=== PATIENT | male | born 1980 | race Caucasian/White ===

== ENCOUNTER 2017-02-11 06:11 | Inpatient (IN) | payer OTHER ==
--- NOTE | 2017-02-11 06:18 | EDPHY ---
H & P Stated Complaint: R FLANK PAIN THIS A.M. HPI/ROS: HPI CHIEF COMPLAINT: Right-sided back pain HISTORY OF PRESENT ILLNESS: This patient 36-year-old male otherwise healthy, does not take any daily medications, presents emergency room with right-sided posterior back pain worse when he takes a deep breath in or worse when he goes to sit up and worse with musculoskeletal movement. Patient denies any trauma. Patient tells me that he did help clean a friend's house yesterday but does not remember injuring his back or doing any significant exertional activity. States he woke up around 430 this morning with right-sided back pain is paravertebral on the right side next to his scapula. It is worse when he takes deep breath and is also worse when he goes to push himself to sit up. States feels like musculoskeletal pain. Also tells me it is sharp stabbing when he takes deep breath in. Denies fever. He does tell me he has had a cough recently. Nonproductive. Denies left-sided chest pain or arm pain, numbness or tingling. Focal weakness. Denies fever. Past Medical History: Genital herpes Past Surgical History: No recent surgery Social History: Denies daily use of drugs alcohol tobacco products Family History: Noncontributory ROS REVIEW OF SYSTEMS: A comprehensive 10 point review of systems is otherwise negative aside from elements mentioned in the history of present illness. Exam Constitutional triage nursing summary reviewed, vital signs reviewed, awake/ alert. Eyes normal conjunctivae and sclera, EOMI, PERRLA. HENT normal inspection, atraumatic, moist mucus membranes, no epistaxis, neck supple/ no meningismus, no raccoon eyes. Respiratory clear to auscultation bilaterally, normal breath sounds, no respiratory distress, no wheezing. Cardiovascular rate normal, regular rhythm, no murmur, no edema, distal pulses normal. Gastrointestinal soft, non-tender, no rebound, no guarding, normal bowel sounds, no distension, no pulsatile mass. Genitourinary no CVA tenderness. Musculoskeletal no midline vertebral tenderness, full range of motion, no calf swelling, no tenderness of extremities, no meningismus, good pulses, neurovascularly intact. Skin pink, warm, & dry, no rash, skin atraumatic. Neurologic awake, alert and oriented x 3, AAOx3, moves all 4 extremities equally, motor intact, sensory intact, CN II-XII intact, normal cerebellar, normal vision, normal speech. Psychiatric normal mood/affect. Heme/Lymph/Immune no lymphadenopathy. 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 Re-evaluation: This appears to be pleuritic in nature also has a musculoskeletal component. Will rule him out for pulmonary embolism. Toradol to see if this improves his pain. EKG interpretation by me on record in [employer] system. Impression time of EKG 6:34 a.m., this is sinus rhythm rate of 71. No acute ischemia. [id number]: I did review this patient's chest x-ray two view it does show he has a moderate size pneumothorax. There is no tension physiology on x-ray. Patient be placed on oxygen. I will consult surgery for this moderate size pneumothorax. 0706: Trauma surgery is been consult for this pneumothorax. Dr. Morales has relayed this to Dr. Beltran, this patient has a moderate size pneumothorax. Plan will be for Dr. Reese and evaluate most likely chest tube admission. Dr. Hanson aware of this patient at 7am shift change. Plan for admission, Chest tube. Source: Patient - Personal History Current Tetanus/Diphtheria Vaccine: Yes Current Tetanus Diphtheria and Acellular Pertussis (TDAP): Yes - Medical/Surgical History Hx Asthma: No Hx Chronic Respiratory Disease: No Hx Diabetes: No Hx Cardiac Disease: No Hx Renal Disease: No Hx Cirrhosis: No Hx Alcoholism: No Hx HIV/AIDS: No Hx Splenectomy or Spleen Trauma: No Other PMH: HSV - Social History Smoking Status: Former smoker Constitutional: Initial Vital Signs Temperature (C) 36.7 C 02/11/17 06:13 Heart Rate 75 02/11/17 06:13 Respiratory Rate 18 02/11/17 06:13 Blood Pressure 112/77 02/11/17 06:13 O2 Sat (%) 97 02/11/17 06:13 O2 Delivery Mode Nasal Cannula O2 (L/minute) 2 Allergies/Adverse Reactions: No Known Allergies Allergy (Verified 02/11/17 06:15) Home Medications: Medication Instructions Recorded Ibuprofen [Motrin (*)] 800 mg PO Q6-8PRN #10 tab 02/11/17 Multivitamins [Multivitamin (*)] 1 each PO DAILY 02/11/17 Medical Decision Making - Data Points Laboratory Results: Laboratory Results 02/11/17 06:43 02/11/17 06:43 Medications Given: Discontinued Medications Fentanyl (Sublimaze) 50 mcg IVP EDNOW ONE Stop: 02/11/17 07:16 Last Admin: 02/11/17 07:34 Dose: 50 mcg Sodium Chloride (Ns) 500 mls @ 1,000 mls/hr IV ONCE ONE PRN Reason: Protocol Stop: 02/11/17 06:54 Last Admin: 02/11/17 06:52 Dose: 500 mls Ketorolac Tromethamine (Toradol) 30 mg IVP EDNOW ONE Stop: 02/11/17 06:29 Last Admin: 02/11/17 06:57 Dose: 30 mg Lorazepam (Ativan Injection) 0.5 mg IVP EDNOW ONE Stop: 02/11/17 07:16 Last Admin: 02/11/17 07:34 Dose: 0.5 mg Midazolam HCl (Versed) 2 mg IVP ONCE ONE Stop: 02/11/17 08:28 Last Admin: 02/11/17 08:28 Dose: 2 mg Midazolam HCl (Versed) 2 mg IVP ONCE ONE Stop: 02/11/17 08:39 Last Admin: 02/11/17 08:36 Dose: 2 mg Departure - Departure Disposition: [facility] Inpatient Acute Clinical Impression: Pneumothorax Qualifiers: Pneumothorax type: unspecified pneumothorax Qualified Code(s): J93.9 - Pneumothorax, unspecified Condition: Good
[2017-02-11] MEDS ORDERED: NS 500 ML IV ONE (06:25)
[2017-02-11] MEDS ORDERED: KETOROLAC 30 MG/1 ML SDV IVP ONE (06:28)
--- NOTE | 2017-02-11 06:36 | CPEKG ---
Heart Rate: 71 RR Interval: 845 P-R Interval: 148 QRSD Interval: 108 QT Interval: 372 QTC Interval: 405 P [place]: 53 QRS [place]: 67 T Wave [place]: 42 EKG Severity - NORMAL ECG - EKG Impression: SINUS RHYTHM Electronically Signed By: Catalina Hanson 11-Feb-2017 16:08:23
[2017-02-11 06:54] LABS: % IMMATURE GRANULYOCYTES 0.3 % (0.0-1.1); ABSOLUTE IMMATURE GRANULOCYTES 0.03 10^3/uL (0.00-0.10); ADD DIFF? NO; ADD MORPH? NO; ADD SCAN? NO; ATYPICAL LYMPHOCYTE FLAG 10 (0-99); FRAGMENT RBC FLAG 0 (0-99); HEMATOCRIT 45.8 % (40.0-51.0); HEMOGLOBIN 15.9 g/dL (13.7-17.5); LEFT SHIFT FLG 0 (0-99); LIPEMIA HEMOLYSIS FLAG 90 (0-99); MEAN CELL HEMOGLOBIN 29.7 pg (27.9-34.1); MEAN CELL HEMOGLOBIN CONCENTR. 34.7 g/dL (32.4-36.7); MEAN CELL VOLUME 85.6 fL (81.5-99.8); MEAN PLATELET VOLUME 11.7 fL (8.7-11.7); PLATELET CLUMPS FLAG 10 (0-99); PLATELET COUNT 201 10^3/uL (150-400); RED BLOOD CELL COUNT 5.35 10^6/uL (4.40-6.38); RED CELL DISTRIBUTION WIDTH 11.9 % (11.5-15.2)
[2017-02-11 07:05] LABS: ALANINE AMINOTRANSFERASE 86 IU/L (21-72); ALBUMIN 4.5 g/dL (3.5-5.0); ALKALINE PHOSPHATASE 55 IU/L (38-126); ANION GAP 13 mEq/L (8-16); ASPARTATE AMINOTRANSFERASE 37 IU/L (17-59); BILIRUBIN,TOTAL 0.6 mg/dL (0.1-1.4); BILIRUBIN-CONJUGATED 0.4 mg/dL (0.0-0.5); BILIRUBIN-UNCONJUGATED 0.2 mg/dL (0.0-1.1); CALCIUM 9.1 mg/dL (8.5-10.4); CARBON DIOXIDE 19 mEq/l (22-31); CHLORIDE 108 mEq/L (97-110); CREATININE 0.7 mg/dL (0.7-1.3); GLOMERULAR FILTRATION RATE > 60; GLUCOSE 102 mg/dL (70-100); MAGNESIUM 2.1 mg/dL (1.6-2.3); POTASSIUM 4.1 mEq/L (3.5-5.2); SODIUM 140 mEq/L (134-144); TOTAL PROTEIN 7.5 g/dL (6.3-8.2)
[2017-02-11] MEDS ORDERED: LORazepam 2 MG/ML INJ IVP ONE (07:15)
[2017-02-11] MEDS ORDERED: fentaNYL 100 MCG/2 ML INJ IVP ONE (07:15)
[2017-02-11 07:17] LABS: CREATINE KINASE-MB FRACTION 2.24 ng/mL (0-3.19); TROPONIN I < 0.012 ng/mL (0-0.034)
[2017-02-11] MEDS ORDERED: MIDAZOLAM 2 MG/2 ML VIAL ONE ×2 (08:16→08:35)
[2017-02-11] MEDS ORDERED: MIDAZOLAM 2 MG/2 ML VIAL IVP ONE ×2 (08:27→08:38)
--- NOTE | 2017-02-11 08:52 | PDGENHP ---
History & Physical Chief Complaint: Shortness of breath History of Present Illness: This is a 36-year-old gentleman who is been going on for the [employer] of the last several days and has had increasing dyspnea and right pleuritic chest pain. He came in by over this morning after symptoms became intolerable. No previous symptoms. No significant past medical history. Maternal family with history of cardiac disease. Review of systems significant for pleuritic chest pain on the right otherwise all reviewed and were negative. No known drug allergies. Occasional acyclovir use Pertinent Past, Social, Family History: Mother's family with diabetes, cardiac disease. Mother with breast cancer. Patient smokes marijuana remote history of smoking tobacco. Quit alcohol 1 year ago. No surgical history. Lives alone. Relevant Physical Exam: Alert oriented no distress. Lungs clear bilaterally. Heart regular heart tones. Abdomen is soft nontender nondistended, no hepatosplenomegaly. No hernias. Extremities good range of motion muscle strength equal bilaterally 5+. Skin normal turgor and tone. Very anxious affect otherwise normal Cardiorespiratory Assessment: Chest x-ray demonstrates 20-30% pneumothorax on the right. Spontaneous pneumothorax. Recommend chest tube placement with 24 hours of suction. Repeat chest x-ray after placement of the tube and in 24 hours. The risks benefits and alternatives to the procedure have been outlined clearly with the patient. Verbal confirmation of understanding was obtained prior to written consent.
--- NOTE | 2017-02-11 08:55 | POSTOPPROG ---
Post Op Note Date of Operation: 02/11/17 Surgeon: Sathish Pereira Bridge Carpenter: None Anesthesiologist: None Anesthesia: IV Sedation Pre-op Diagnosis: Spontaneous right pneumothorax Post-op Diagnosis: Same Procedure: Closed tube thoracostomy placement Findings: Good air shrestha postprocedure Chest x-ray-lung re-expanded Inf/Abcess present in the surg proc area at time of surgery?: No EBL: Minimal Drains: Nephrostomy, Other (Right 24 Citizen [place] chest tube) Specimen(s): None
[2017-02-11] MEDS ORDERED: ONDANSETRON DISINTEGRATING 4 MG TAB PO PRN (08:59)
--- NOTE | 2017-02-11 08:59 | SUROPNOTE ---
[facility] Operative Report - Surgery Date of procedure 02/11/2017 Indications for procedure Spontaneous right pneumothorax with pleuritic chest pain Preop diagnosis: Right pneumothorax spontaneous Postop diagnosis: Same Procedure right closed tube thoracotomy Surgeon: Sathish Pereira Anesthesia 4 mg of Versed said M 1% xylocaine with epinephrine Findings good air shrestha during procedure post x-ray shows complete re-expansion of the lung Procedure: This is a 36-year-old gentleman who presents to the hospital with spontaneous pneumothorax. Right-sided pneumothorax is confirmed on x-ray time-out procedure was performed according to institutional standards. After infusion of IV sedation his chest is prepped with chlorhexidine draped sterilely. Local anesthetic is infused incident and subcutaneous tissues of the right chest at the 5th intercostal space. A 10 blade used to make the incision was deepened sharply blunt dissection is then used to get to the rib cage. The pleural space is entered after appropriate anesthesia placement. The air shrestha was noted and a 24 [place] chest tube was placed through this defect. It was secured at 12 cm. The patient tolerated the procedure well. Sterile application of dressing was performed after connecting the chest tube to an atrium.
[2017-02-11] MEDS: oxyCODONE IR 5 MG TAB PO PRN ×2 (09:35→19:26)
[2017-02-11] MEDS: LIDOCAINE 5% 1 EA PATCH TD SCH (09:37)
[2017-02-11] MEDS: LORazepam 1 MG TAB PO PRN ×2 (12:30→23:09)
[2017-02-11 19:20] LABS: COLOR YELLOW; LEUKOCYTE ESTERASE,URINE NEGATIVE (NEGATIVE); NITRITE,URINE NEGATIVE (NEGATIVE)
[2017-02-11] MEDS ORDERED: PATCH REMOVAL 1 EA PATCH TD SCH (21:00)
[2017-02-11 23:01] VITALS: RESP 16
[2017-02-11] MEDS: KETOROLAC 30 MG/1 ML SDV IVP PRN (23:09)
[2017-02-11] MEDS ORDERED: TEMAZEPAM 15 MG CAP PO PRN (23:59)
[2017-02-12] MEDS: LIDOCAINE 5% 1 EA PATCH TD SCH (08:34)
[2017-02-12] MEDS: KETOROLAC 30 MG/1 ML SDV IVP PRN (09:59)
[2017-02-12 11:29] VITALS: TEMP 98.2
[2017-02-12 15:43] VITALS: BP 140/83; PULSE 76; O2SAT 98
--- NOTE | 2017-02-12 16:26 | SOAPPROG ---
SOAP Progress Note Assessment/Plan: Assessment/Plan Spontaneous ptx treated with closed tube thoracostomy. CXR no ptx while on water seal CT pulled without incident D/C today if no ptx on post pull film 02/12/17 16:25 Objective: Vital Signs Temp Pulse Resp BP Pulse Ox 36.8 C 76 16 140/83 H 98 02/12/17 15:42 02/12/17 15:42 02/12/17 15:42 02/12/17 15:42 02/12/17 15:42 02/11/17 02/12/17 02/13/17 05:59 05:59 05:59 Intake Total 450 Balance 450 ICD10 Worksheet Patient Problems: Problems Problem Status Onset Pneumothorax Acute
== END 2017-02-12 19:28 | disposition home or self-care (01) | DRG 201 ==
LOC: OBSVTOIN 07:47 → F3E 09:18
PROVIDERS: ADMIT Surgery; ATTEND Surgery
PROC: 0W9930Z Drainage of Right Pleural Cavity with Drainage Device, Percutaneous Approach (ICD-10-PCS; principal; 2017-02-11)
DX: J93.83 Other pneumothorax (principal); Z87.891 Personal history of nicotine dependence
CPT/HCPCS: 96374; J1885; J2060; J2250; J3010

== ENCOUNTER 2017-02-25 22:30 | Emergency (ER) | payer OTHER ==
--- NOTE | 2017-02-25 22:39 | EDPHY ---
H & P - Medical/Surgical History Hx Asthma: No Hx Chronic Respiratory Disease: No Hx Diabetes: No Hx Cardiac Disease: No Hx Renal Disease: No Hx Cirrhosis: No Hx Alcoholism: No Hx HIV/AIDS: No Hx Splenectomy or Spleen Trauma: No Other PMH: HSV - Social History Smoking Status: Former smoker Time Seen by Provider: 02/25/17 22:38 HPI/ROS: CHIEF COMPLAINT: Dyspnea, history of recent pneumothorax HISTORY OF PRESENT ILLNESS: 36-year-old male with recent ER evaluation for spontaneous right-sided pneumothorax with chest tube placement by General surgery at that time, presents to the ER via private vehicle complaining of 3- 4 hours of acute right sided chest pain, back pain, dyspnea, anxiety. No abdominal pain. No syncope or near syncope. REVIEW OF SYSTEMS: A ten point review of systems was performed and is negative with the exception of the items mentioned in the HPI PAST MEDICAL & SURGICAL HISTORY: Recent spontaneous right-sided pneumothorax SOCIAL HISTORY: Nonsmoker PHYSICAL EXAM (Prior to examination, patient consented to physical exam, hands were washed and my usual and customary physical exam procedures followed) 1) GENERAL: Well-developed, well-nourished, alert and oriented. Appears anxious 2) HEAD: Normocephalic, atraumatic 3) HEENT: Pupils equal, round, reactive to light bilaterally. Sclera anicteric. 4) NECK: Full range of motion, no meningeal signs. 5) LUNGS: Clear auscultation bilaterally, no crepitus . Right mid axillary surgical incision well healed. 6) HEART: Regular rate and rhythm, no murmur, no heave, no gallop. 7) ABDOMEN: No guarding, no rebound, no focal tenderness, negative McBurney's, 8) MUSCULOSKELETAL: No peripheral edema or discoloration. 9) BACK: No CVA tenderness. 10) SKIN: No rash, no petechiae. DIFFERENTIAL DIAGNOSIS: [ in no particular order include but limited to pulmonary embolus, (Anahi Vogt) Constitutional: Initial Vital Signs Temperature (C) 36.2 C 02/25/17 22:35 Heart Rate 72 02/25/17 22:35 Respiratory Rate 16 02/25/17 22:35 Blood Pressure 126/86 H 02/25/17 22:35 O2 Sat (%) 97 02/25/17 22:35 O2 Delivery Mode Room Air Allergies/Adverse Reactions: No Known Allergies Allergy (Verified 02/11/17 06:15) Home Medications: Medication Instructions Recorded Hydrocodone/APAP 325 [[place] 1 tab PO Q6 PRN #7 tab 02/26/17 5/325 (RX)] Medical Decision Making - Diagnostics Imaging: I viewed and interpreted images myself - Diagnostics Imaging Results: Imaging Impressions Chest X-Ray 02/25/17 22:36 Impression: Negative for recurrent pneumothorax. Chest/Thorax CTA 02/25/17 22:56 Impression: 1. No evidence of pulmonary embolic disease. 2. Negative for recurrent pneumothorax. Results called and discussed with Anahi Vogt on 02/26/2017 at 0:03 Images reviewed by myself (Anahi Vogt) ED Course/Re-evaluation: 11:00 p.m.: Patient requests anxiolytic. Plan will be chest x-ray. Chest x- ray is negative we discussed obtaining a CT angiography of chest to evaluate possible pulmonary embolus. Indications risks benefits of this discussed with patient he consents. Discussed the case with secondary supervising physician Dr. Yulissa Anderson 12:23 a.m.: Patient re-evaluated with serial exams. He is calm, resting comfortably, breathing comfortably, not tachycardic, not tachypneic. Discussed his negative imaging. Plan will be discharge with analgesia, incentive spirometer and follow up with his primary care provider. He feels comfortable being discharged. Usual and customary discharge precautions and instructions provided. All questions and concerns addressed by myself (Anahi Vogt) Other Provider: PHYSICIAN DOCUMENTATION: The patient was evaluated and managed by the Physician Fmd Teacher. My co- signature indicates that I have reviewed this chart and I agree with the findings and plan of care as documented. I am the secondary supervising physician. (Yulissa Anderson) - Data Points Laboratory Results: 02/25/17 23:15 POC Hgb 14.6 gm/dL gm/dL (13.7-17.5) POC Hct 43 % % (40-51) POC Sodium 144 mEq/L mEq/L (134-144) POC Potassium 3.8 mEq/L mEq/L (3.3-5.0) POC Chloride 105 mEq/L mEq/L (97-110) POC BUN 20 mg/dL mg/dL (7-23) POC Creatinine 1.1 mg/dL mg/dL (0.7-1.3) POC Glucose 84 mg/dL mg/dL (70-100) Medications Given: Discontinued Medications Hydrocodone Bitart/Acetaminophen ([place] 5/325mg Prepack#6) 1 btl TAKEHOME EDNOW ONE Stop: 02/26/17 00:25 Last Admin: 02/26/17 00:28 Dose: 1 btl Lorazepam (Ativan Injection) 1 mg IVP EDNOW ONE Stop: 02/25/17 23:14 Last Admin: 02/25/17 23:29 Dose: 1 mg Point of Care Test Results: 02/25/17 23:15 POC Sodium 144 POC Potassium 3.8 POC Chloride 105 POC BUN 20 POC Creatinine 1.1 POC Glucose 84 Departure - Departure Disposition: Home, Routine, Self-Care Clinical Impression: Pleural pain Condition: Good Instructions: Hydrocodone/Acetaminophen (By mouth), Pleurisy (ED) Additional Instructions: Return to the ER if you develop new or worsening pain or symptoms or shortness of breath. Referrals: Joana Wade MD [Primary Care Provider] - 1-2 days without fail Prescriptions: Hydrocodone/APAP 5/325 [[place] 5/325 (RX)] 1 tab PO Q6 PRN #7 tab PRN Reason: Pain, Severe
[2017-02-25 22:52] VITALS: TEMP 97.2
[2017-02-25] MEDS ORDERED: IOPAMIDOL (ISOVUE 370) 100 ML BTL IV ONE (22:58)
[2017-02-25] MEDS ORDERED: LORazepam 2 MG/ML INJ IVP ONE (23:13)
[2017-02-26] MEDS ORDERED: HYDROCOD/APAP 5/325 PREPACK#6 BTL TAKEHOME ONE (00:24)
[2017-02-26 00:42] VITALS: BP 116/77; PULSE 77; RESP 18; O2SAT 96
== END 2017-02-26 00:42 | disposition home or self-care (01) ==
DX: R07.89 Other chest pain (principal); Z87.891 Personal history of nicotine dependence
CPT/HCPCS: 82947-QW; 96374; J2060; Q9967

== ENCOUNTER 2018-09-18 11:05 | Day surgery (SDC) | payer OTHER ==
[2018-09-18] MEDS ORDERED: fentaNYL 100 MCG/2 ML INJ ONE ×3 (11:32→15:20)
[2018-09-18] MEDS ORDERED: PROPOFOL 200 MG/20 ML VIAL ONE (11:32)
[2018-09-18] MEDS ORDERED: ONDANSETRON 4 MG/2 ML VIAL ONE ×2 (11:32→17:12)
[2018-09-18] MEDS ORDERED: LIDOCAINE 2% 2 ML INJ ONE (11:32)
[2018-09-18] MEDS ORDERED: ceFAZolin 2 GM/DEXTROSE 100 ML IV ONE (11:33)
[2018-09-18] MEDS ORDERED: LR 1,000 ML IV ONE (11:34)
[2018-09-18] MEDS ORDERED: MIDAZOLAM 2 MG/2 ML VIAL IVP ONE (11:37)
[2018-09-18] MEDS ORDERED: PROMETHAZINE HCL 25 MG/ML INJ IVP PRN (11:38)
[2018-09-18] MEDS ORDERED: MEPERIDINE 25 MG/0.5 ML AMP IVP PRN (11:38)
[2018-09-18] MEDS ORDERED: METOCLOPRAMIDE 10 MG/2 ML VIAL IVP PRN (11:38)
[2018-09-18] MEDS ORDERED: oxyCODONE IR 5 MG TAB PO PRN (11:38)
[2018-09-18] MEDS ORDERED: LR 500 ML IV PRN (11:38)
[2018-09-18] MEDS ORDERED: ONDANSETRON 4 MG/2 ML VIAL IVP PRN (11:38)
[2018-09-18] MEDS ORDERED: NALOXONE HCL 0.4 MG/ML INJ IVP PRN (11:38)
[2018-09-18] MEDS ORDERED: PHENYLEPHRINE HCL 100 MCG/ML SYR IVP PRN (11:38)
--- NOTE | 2018-09-18 12:29 | PDANEPAE ---
ANE Past Medical History - Cardiovascular History Hx Hypertension: No Hx Arrhythmias: No Hx Chest Pain: No Hx Coronary Artery / Peripheral Vascular Disease: No Hx CHF / Valvular Disease: No Hx Palpitations: No - Pulmonary History Hx COPD: No Hx Asthma/Reactive Airway Disease: Yes Hx Recent Upper Respiratory Infection: No Hx Oxygen in Use at Home: No Hx Sleep Apnea: No Sleep Apnea Screening Result - Last Documented: Negative Pulmonary History Comment: SMOKING INDUCED ASTHMA. PNEUMOTHORAX 2017 - Neurologic History Hx Cerebrovascular Accident: No Hx Seizures: No Hx Dementia: No Neurologic History Comment: CHILDHOOD MIGRAINES - Endocrine History Hx Diabetes: No - Renal History Hx Renal Disorders: No - Liver History Hx Hepatic Disorders: No - Neurological & Psychiatric Hx Hx Neurological and Psychiatric Disorders: No - Cancer History Hx Cancer: No - Congenital Disorder History Hx Congenital Disorders: No - GI History Hx Gastrointestinal Disorders: No - Other Health History Other Health History: HYDROCELE - Chronic Pain History Chronic Pain: No - Surgical History Prior Surgeries: THORACOTOMY FOR PNEUMOTHORAX. ORAL SURG ANE Review of Systems Review of Systems: - Exercise capacity METS (RN): 5 METS ANE Patient History - Allergies Allergies/Adverse Reactions: No Known Allergies Allergy (Verified 02/11/17 06:15) - Home Medications Home Medications: Meloxicam DAILY 09/09/18 [Last Taken 09/12/18] Acetaminophen [Tylenol] 1,300 09/18/18 [Last Taken 09/18/18] LORazepam [Lorazepam] 0.5 mg PO 09/18/18 [Last Taken 09/18/18] - NPO status NPO Since - Liquids (Date): 09/18/18 NPO Since - Liquids (Time): 09:00 NPO Since - Solids (Date): 09/17/18 NPO Since - Solids (Time): 23:45 - Smoking Hx Smoking Status: Former smoker ANE Labs/Vital Signs - Vital Signs Blood Pressure: 122/73 Heart Rate: 87 Respiratory Rate: 16 O2 Sat (%): 95 Height: 180.34 cm Weight: 110.677 kg ANE Physical Exam - Airway Neck exam: FROM Mallampati Score: Class 2 Mouth exam: normal dental/mouth exam - Pulmonary Pulmonary: no respiratory distress, no rales or rhonchi, clear to auscultation - Cardiovascular Cardiovascular: regular rate and rhythym, no murmur, rub, or gallop - ASA Status ASA Status: II ANE Anesthesia Plan Anesthesia Plan: GA w LMA
--- NOTE | 2018-09-18 12:31 | PDHPUP ---
History & Physical Update H&P update statement: This history and physical update is based on an assessment of the patient which was completed after admission or registration (within 24 hours), but prior to the surgery/procedure. H&P update: H&P reviewed & patient examined, no change in patient's condition since H&P completed
[2018-09-18] MEDS ORDERED: BUPIVACAINE 0.5% 30 ML SDV ONE (12:59)
[2018-09-18] MEDS ORDERED: BACITRACIN ZINC 0.5 OZ OINTTUBE TP ONE (13:16)
--- NOTE | 2018-09-18 13:18 | POSTANESTH ---
Post Anesthetic Evaluation Cardiovascular Status: Normal, Stable Respiratory Status: Normal, Stable Level of Consciousness/Mental Status: Can Participate in Eval Pain Control: Adequate, Prn Tx Ordered Nausea/Vomiting Control: Adequate, Prn Tx Ordered Complications Possibly Related to Anesthesia: None Noted
[2018-09-18] MEDS: fentaNYL 100 MCG/2 ML INJ IVP PRN ×2 (15:24→15:30)
[2018-09-18] MEDS ORDERED: HYDROmorphONE/DILAUDID 2 MG/ML INJ ONE (15:32)
--- NOTE | 2018-09-18 15:33 | POSTOPPROG ---
Post Op Note Date of Operation: 09/18/18 Surgeon: Veronica Fisher Anesthesia: GET(General Endotracheal) Pre-op Diagnosis: right testicular pain, hydrocele, scrotal abnl on image Post-op Diagnosis: same Indication: right testicular injury w reactive hydrocele, pain Procedure: R scrotal exploration, right testicular bx, hydrocelectomy Findings: right reactive fibrosis on testicle per frozen, hyrocele Inf/Abcess present in the surg proc area at time of surgery?: No EBL: Minimal Complications: none, patient tolerated procedure well Drains: Other (soledad)
[2018-09-18] MEDS: HYDROmorphONE/DILAUDID 2 MG/ML INJ IVP PRN ×3 (15:34→16:24)
[2018-09-18] MEDS ORDERED: oxyCODONE IR 5 MG TAB ONE (16:20)
[2018-09-18 17:47] VITALS: BP 116/80
--- NOTE | 2018-09-19 16:19 | GOP ---
DATE OF OPERATION: 09/18/2018 SURGEON: Veronica Fisher MD ANESTHESIA: General anesthesia. ANESTHESIOLOGIST: Mikhail Condon MD. PREOPERATIVE DIAGNOSIS: History of right testicular trauma resulting in right testicular pain, reactive hydrocele, and an abnormal testicle on imaging. 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 PROCEDURE PERFORMED: Right hemiscrotal exploration, hydrocelectomy, biopsy of right testicular mass, and Doppler ultrasound of the testicle. FINDINGS: The mass was reactive fibrosis verified by Pathology with a frozen section. INDICATIONS: Patient injured his right testicle during repeated aggressive intercourse back in May 2018. He presented to my office two weeks after the initial testicular discomfort and apparent injury. Imaging demonstrated a hydrocele as well as possible right testicular mass versus hematoma or injury from trauma. Tumor markers were negative, and I had repeated imaging including an MRI that was consistent that there was no testicular tumor in this abnormal area on the imaging, and it was more consistent with trauma and sub-albugenia contusion. We observed the testicle for two months during which time he continued to have right chronic testicular pain and a bothersome hydrocele, and after much discussion in my office and several meetings, he elected to undergo right scrotal exploration with possible hydrocelectomy versus debridement of testicle versus repair of testicle and hydrocelectomy. He understood that the chronic pain may be persistent even after the surgery and removal of the hydrocele, and he understood that an orchiectomy may also be part of the procedure if the testicle does not look healthy or gets injured at some point during the testicular evaluation. We reviewed all these in great detail in my office as well as preoperatively in the preop, and he agreed to proceed. DESCRIPTION OF PROCEDURE: The patient was taken back to the operating room, placed in supine position. General anesthesia was induced without complication. Time-out performed. Core measures satisfied including placement of a Evonne Hugger, SCDs, and administration of 2 g Ancef antibiotics. His genitalia were shaved and then he was draped and prepped in the standard surgical fashion with Betadine. The right hydrocele was easily identified and was moderate in size. The midline rhaphe was identified, and 0.5% lidocaine without epinephrine was injected into the median raphae. The right hemiscrotum at the hydrocele was brought into the center of the scrotum just below the median raphae. The median raphae was incised with a knife and then electrocautery used to take this incision further down through the dartos and to the level of the tunica vaginalis which was the hydrocele sac. Electrocautery and blunt dissection were used to dissect off cremasteric attachments and gubernacular attachments to the tunica vaginalis. Once all of the attachments were dissected off the hydrocele sac, the hydrocele sac was opened with electrocautery and then around 200 mL of straw-colored hydrocele fluid were drained. The hydrocele sac was further incised and the testicle delivered. The testicle was examined, and it was whitish pink indicating healthy testicle. There was a testicular abnormality on the anterior aspect of the testicle. It was 0.5cm soft abnormal mass, covered with what appeared to be a thin layer of albugenia, much thinner than what surrounded the remaining testicle and the color showing through was similar to the color of seminiferous tubules. There was also a similar series of smaller abnormalities just inferior to this area but not as pronounced as this rounded about 0.5 cm area that I am referencing to, and there was another abnormality just above it, but again the most prominent was this 0.5 cm area right on the anterior testicle. At this point I felt I could not leave this mass without further evaluation, so I cored it out using an 11 blade for biopsy. I achieved hemostasis with electrocautery and closure of defect. I sent this biopsy area to Pathology for frozen. There was what appeared to be healthy appearing seminiferous tubules below this mass area. While waiting for frozen, hemostasis was achieved with electrocautery, and then I oversewed this area with a 4-0 chromict reapproximating the tunica albuginea and using the end of an Adson forceps to hold in the seminiferous tubules as to not include those in my closure. At the end hemostasis was excellent with the closure, and by that time Pathology returned information saying that this was just fibrotic reactive tissue as would be seen with trauma, no malignancy identified. No testicular cancer or abnormal cells concerning for cancer were seen. This was most likely consistent with his prior trauma so at this point I did no other biopsies of those abnormal areas that were above and below this area. I felt it was all the same pathology from trauma, and at this point I proceeded with removing the hydrocele sac and excised the hydrocele sac and left about 1 cm of tunica vaginalis circumferentially around the testicle. I did not violate the epididymis or the cord in any way with my hydrocele excision. I then oversewed the edge of the hydrocele sac with 4-0 chromic in a running fashion. Hemostasis was excellent. I then used the Doppler ultrasound to Doppler the testicle. Again, the testicle stayed nice and pink/white and healthy throughout the whole procedure, and with Doppler I confirmed there was a robust , appropriate, and expected arterial pulse to the testicle. So with this I looked inside the right hemiscrotum and used electrocautery to ensure hemostasis. I did make an incision in the inferior aspect of the right scrotum for a Issa drain and then placed a [place] drain and secured that to the skin with 0 silk. I then placed the testicle in the right hemiscrotum with the lateral sulcus lateral, verified no twisting of the cord, and I used a 3-0 chromic to close the dartos in a running fashion and then 2-0 chromic to close the skin in a horizontal mattress fashion. I did irrigate the wound prior to the final skin closure, and I did instill 10 mL more of 0.5% lidocaine without epi into the wound area. At the end hemostasis was excellent. Fluffs and scrotal support were placed along with bacitracin over the wound, and the procedure was considered complete. He was awoken from anesthesia and transferred to PACU in good condition. /[id number]/MODL MTDD
== END 2018-09-18 17:25 | disposition home or self-care (01) ==
LOC: FSGY 11:05
PROVIDERS: ATTEND Urology
PROC: 0VB60ZZ Excision of Right Tunica Vaginalis, Open Approach (ICD-10-PCS; principal; 2018-09-18 12:30)
PROC: 0VB90ZX Excision of Right Testis, Open Approach, Diagnostic (ICD-10-PCS; principal; 2018-09-18 12:30)
DX: N43.3 Hydrocele, unspecified (principal); N44.8 Other noninflammatory disorders of the testis
CPT/HCPCS: J0690; J1170; J2250; J2405; J2704; J3010